=== PATIENT | female | born 1935 | race Caucasian/White ===

== ENCOUNTER 2016-11-09 11:01 | Day surgery (SDC) | payer MEDICARE, BC ==
[2016-11-09] VITALS (24 sets, daily range): BP systolic 133–162; BP diastolic 54–72; PULSE 89–113; RESP 13–24; TEMP 96–98.4; O2SAT 92–99; Ht 144.8 cm; Wt 68.4 kg
[~2016-11-09] VITALS: Ht 144.8 cm; Wt 68.4 kg
[~2016-11-09 11:01] MED LIST: AMLO5TAB2 PO; HEPARIN SUB-Q 5,000 unit/0.5ml vial SQ ONE; LIDOCAINE 1% (10mg/ml) 2ml SDV INJ ONE; LR 1,000 ML IV PRN; NORMAL SALINE 1,000 ML IV PRN; PHENAZOPYRIDINE 95 MG TABLET PO ONE
[2016-11-09] MEDS ORDERED: BUPIVACAINE 0.25%/EPI 1:200,000 30ml SDV ONE ×2 (11:08→13:45)
[2016-11-09] MEDS ORDERED: SALINE FLUSH 10ml SYRINGE ONE ×2 (11:08→13:46)
[2016-11-09] MEDS ORDERED: LIDOCAINE JELLY 2% 20ml UROJET MM ONE (11:09)
--- NOTE | 2016-11-09 12:03 | ANESPREOP ---
Anesthesia Record Date and Time DATE: 11/09/16 TIME: 11:55 Proposed Surgical Procedure VAGINAL HYST. WITH REMOVAL OF TUBES, MID URETHERAL LING CYSTO, STENT NPO since: mn Allergies: Coded Allergies: No Known Allergies (Unverified , 11/08/16) Ht/Wt/BMI Height: ' " Weight: kg BMI: kg/m2 Medications Inpatient Medications Current Medications Medications (Trade) Dose Ordered Sig/Marquez Start Time Stop Time Status Last Admin Dose Admin Lactated Ringer's 1,000 ml @ 50 mls/hr Q20H PRN 11/09/16 07:00 11/09/16 07:00 DC Sodium Chloride 1,000 ml @ 50 mls/hr Q20H PRN 11/08/16 16:54 11/08/16 16:58 DC Sodium Chloride (Normal Saline IV) 1,000 ml @ 50 mls/hr Q20H PRN 11/09/16 07:00 Amlodipine Besylate (Amlodipine Besylate) 5 Mg Tablet, 5 MG PO DAILY, (Reported) Currently on Beta Raman: No Medical/Surgical History Anesthesia PMH: Reports: *Hypertension, CVA/Stroke/TIA (TIA- POSSIBLY YEARS AGO ), Renal Disease Smoking Status: Never smoker Use Chewing Tobacco?: No Second Hand Exposure: No Substance Use Type: does not use Alcohol Intake: none HX of Last Menstrual Period: AGE 56 Past Surgical History Orthopedic Surgeries: Yes - ANKLE-LEFT Abdominal Surgeries: Genitourinary Surgeries: Yes - BLADDER TIE UP Cardiac Surgeries: Endocrine Surgeries: Reproductive Surgeries: Yes - LUMPECTOMY Neurological Surgeries: Ear Surgeries: Nose Surgeries: Throat Surgeries: Other Surgeries: Anesthesia Adverse Reactions: FOUND none Family Hx of Anesthesia Advers: none Hx of Motion Sickness: No Physical Exam Respiratory: Bilat breath sounds equal, Lungs clear Cardiovascular: FOUND Regular rate, rhythm, FOUND No murmur Airway Assessment Mallampati Score: II TMD: 2 Fingerbreadths Neck Extension: Fair Teeth: Partial Upper Dentures Overall Assessment: May Be Diff Intubation (small mouth opening, ) ASA: 3 Plan Anesthesia Plan: GETA Discussion Discussed risks/options/alternatives of anesthesia and questions answered. Patient consents. Nursing pain assessment noted. Present: Family Member Attestation Statement Prior to the delivery of any anesthetic medication, I examined the patient, developed the plan, obtained the patient's consent and discussed the risk and benefits of the procedure with the patient/guardian. STEWART PEDRAZA AGENT Nov 09, 2016 11:59
[2016-11-09 12:07] LABS: BASOPHILS % (AUTO) 0.5 % (0-2); EOSINOPHILS # (AUTO) 0.3 T/MM3 (0-0.5); EOSINOPHILS % (AUTO) 3.6 % (0-4); HCT - HEMATOCRIT 35.7 % (36-46); HGB - HEMOGLOBIN 11.5 GM/DL (12-16); IMMATURE GRANULOCYTE # (AUTO) 0.01 T/MM3 (0.00-0.03); IMMATURE GRANULOCYTE % (AUTO) 0.1 % (0.0-0.5); LYMPHOCYTES % (AUTO) 27.2 % (23-45); MEAN CORPUSCULAR HGB 27.2 UUG (26-34); MEAN CORPUSCULAR HGB CONC(MCHC 32.2 GM/DL (31-37); MEAN CORPUSCULAR VOLUME 84.4 UM3 (80-100); MEAN PLATELET VOLUME 9.4 UM3 (9.4-12.4); MONOCYTES # (AUTO) 0.3 T/MM3 (0-0.8); MONOCYTES % (AUTO) 4.7 % (0-9.0); NEUTROPHILS #(AUTO)-ABSOLUTE 4.7 T/MM3 (1.8-7.7); NEUTROPHILS % (AUTO) 63.9 % (33-66); RED BLOOD COUNT 4.23 M/MM3 (4.00-5.20); WBC - WHITE BLOOD COUNT 7.3 T/MM3 (4.5-11.0)
[2016-11-09] MEDS ORDERED: FENTANYL 250mcg/5ml INJECTION ONE (12:11)
[2016-11-09] MEDS ORDERED: PROPOFOL 200mg 20 ML IV ONE (12:12)
[2016-11-09] MEDS ORDERED: ROCURONIUM 50mg/5ml INJECTION IV ONE (12:12)
[2016-11-09 12:16] LABS: ALBUMIN 3.9 G/DL (3.5-5.0); ALBUMIN/GLOBULIN RATIO 1.1 RATIO (1.1-2.2); ALKALINE PHOSPHATASE 95 U/L (38-126); ALT (SGPT) 23 U/L (9-52); ANION GAP 11 MEQ/L (5-15); AST (SGOT) 26 U/L (14-36); BUN/CREATININE RATIO 10 RATIO (6-26); CALCIUM 9.7 MG/DL (8.4-10.2); CHLORIDE 110 MEQ/L (98-107); CO2 - CARBON DIOXIDE 26 MEQ/L (22-30); CREATININE 0.9 MG/DL (0.7-1.2); GLOMERULAR FILTRATION RATE 60; GLUCOSE 118 MG/DL (65-110); POTASSIUM 3.4 MEQ/L (3.6-5); SODIUM 147 MEQ/L (134-144); TOTAL PROTEIN 7.6 G/DL (6.3-8.2)
[2016-11-09] MEDS ORDERED: LACRI-LUBE EYE OINT 3.5 G TUBE ONE (12:53)
[2016-11-09] MEDS ORDERED: CEFAZOLIN 1 GRAM INJECTION ONE (13:02)
[2016-11-09] MEDS ORDERED: CEFAZOLIN 1 G in NORMAL SALINE 100 ML IV ONE (13:05)
[2016-11-09] MEDS ORDERED: DEXAMETHASONE 4mg/ml - 1ml INJECTION ONE (13:19)
[2016-11-09] MEDS ORDERED: ONDANSETRON 4mg/2ml INJECTION ONE (13:19)
[2016-11-09] MEDS ORDERED: HYDROMORPHONE 2mg/ml INJECTION ONE (13:50)
[2016-11-09] MEDS ORDERED: DESFLURANE 240 ML LIQUID IH ONE (13:55)
[2016-11-09] MEDS ORDERED: IOHEXOL 300 MG/ML 50ml INJECTION ONE (14:39)
[2016-11-09] MEDS ORDERED: ONDANSETRON 4mg/2ml INJECTION IV PRN ×2 (15:15→16:45)
[2016-11-09] MEDS ORDERED: HYDROMORPHONE 2mg/ml INJECTION IV PRN (15:15)
[2016-11-09] MEDS ORDERED: FUROSEMIDE 40 MG/4 ML INJECTION ONE (15:36)
--- NOTE | 2016-11-09 16:42 | GYNOPNOTE1 ---
COMPOSITION BOARD PRESS OPERATOR Postoperative Note Date of Operation: 11/09/16 Preoperative Dx Comments MASSIVE CHRONICALLY NEGLECTED UTEROVAGINAL PROCIDENTIA; URETHRAL HYPERMOBILITY, GEM Postoperative Dx Comments SAME; SUSPECTED URETERAL OBSTRUCTION LEFT VHYST BSO ; TOTAL VAGINECTOMY; POSTERIOR COLPOPERINEORRHAPHY; MID URETHRAL SLING ; CYSTO W/ BILAT URETERAL CATH AND LEFT INDWELLING STENT Surgeon: Rufina Cornell Anesthesia Provider: Benjamin Hamlin CRNA Comments 350 ML Findings SEVERE ULCERATIONS, EDEMA, PROLAPSE, LOW URINE OUTPUT ENTIRE CASE. RUFINA CORNELL MD Nov 09, 2016 16:40
--- NOTE | 2016-11-09 16:48 | DI ---
Indication: ITS.REASON: POST OP STENT PROCEDURE: KUB: Encounter: Initial Comparison: None Findings: Endotracheal tube is seen in the mid thoracic trachea projecting 2 cm above the mario. There is airspace opacity in the left lower lobe. There is overlying catheter tubing projecting over the central abdomen. There is a left-sided double-J stent which appears low lying. The distal aspect is positioned farther towards the right than would be anticipated while the proximal locking loop appears lower than normal projecting at the L4 level. Bowel gas pattern is nonobstructive and nonspecific. Impression: The left-sided double-J stent appears to be distally migrated and low lying. .
--- NOTE | 2016-11-09 17:14 | ANESPO ---
Post-Op Note Date 11/09/16 Time: 17:14 Status Pt Participated in Evaluation: Pt participated in person Vital Signs Date Time Temp Pulse Resp B/P Pulse Ox O2 Delivery O2 Flow Rate FiO2 11/09/16 17:10 97.8 99 20 148/64 95 Room Air 11/09/16 16:37 5.00 Respiratory Function: Airway patent, Regular respirations Cardiovascular Function: Regular pulse Mental Status: Alert/oriented Pain Level Intensity: 0 Hydration: IV infusing Complications during Recovery None apparent Follow-Up Instructions Instructions Per Surgeon STEWART PEDRAZA CRNA Nov 09, 2016 17:14
--- NOTE | 2016-11-09 17:20 | NUR ---
ARRIVAL PT TO ROOM 121 PER CART. PT TRANSFERRED USING SLIDE BOARD WITH ASSIST OF 3. PT STATES PAIN IS 4/10 BUT DENIES NEED FOR PAIN MEDICATION. EGG SIZE BLEEDING TO THE PAD. PT DENIES NAUSEA OR SOA. PT ORIENTED TO SURROUNDINGS AND BED. BED ALARM ON. CALL LIGHT WITHIN REACH. WILL CONTINUE TO MONITOR.
[2016-11-09] MEDS: LR 1,000 ML IV SCH (17:34)
[2016-11-09] MEDS ORDERED: FLUORESCEIN IV ONE (18:16)
[2016-11-09] MEDS: METOCLOPRAMIDE 10mg/2ml INJECTION IV PRN (18:28)
--- NOTE | 2016-11-09 18:28 | NUR ---
NAUSEA PT DRY HEAVING. ALCOHOL SWAB PUT UP TO PT'S NOSE. BLUE BAG GIVEN TO PT. REGLAN ADMINISTERED. PT RESTING IN BED, WILL CONTINUE TO MONITOR.
[2016-11-09] MEDS: MORPHINE SULFATE 4 MG SYRINGE IV PRN (22:08)
[2016-11-09] MEDS: ARTIFICIAL TEARS 15 ML BOTTLE BOTH EYES PRN ×2 (22:22→23:22)
[2016-11-10] MEDS: LR 1,000 ML IV SCH ×3 (00:42→16:52)
[2016-11-10] MEDS: CEFAZOLIN 1 G in NORMAL SALINE 100 ML IV SCH ×3 (02:02→17:58)
[2016-11-10 02:18] VITALS: PULSE 92; RESP 18
[2016-11-10 03:42] VITALS: BP 128/62; PULSE 92; RESP 18; TEMP 98.1; O2SAT 93
[2016-11-10] MEDS: MORPHINE SULFATE 4 MG SYRINGE IV PRN (05:19)
--- NOTE | 2016-11-10 05:19 | NUR ---
Pain Pt rating pain a 5/10. Pt stated "the pain is in my tailbone area, I have had this tailbone pain in the past as well and I think its just because I've been not moving as much in the bed." This RN discussed PO pain medication options with the Pt. Pt stated she was "iffy about taking PO pain medications." Pt stated she wanted to do the IV pain medication at this time. 3mg IV morphine was given. Encouragement of PO intake was discussed with the Pt so she could take PO pain medications for pain management.
--- NOTE | 2016-11-10 06:35 | NUR ---
Summary Pts VS have been stable on RA. Family present at bedside. Pt denies nausea, Pt rated pain a 5/10 PRN Morphine was given. Zayas still in place, with adequate output.
[2016-11-10 06:50] LABS: ANION GAP 8 MEQ/L (5-15); BUN/CREATININE RATIO 10 RATIO (6-26); CHLORIDE 104 MEQ/L (98-107); CO2 - CARBON DIOXIDE 28 MEQ/L (22-30); CREATININE 0.8 MG/DL (0.7-1.2); GLOMERULAR FILTRATION RATE 69; GLUCOSE 131 MG/DL (65-110); POTASSIUM 3.6 MEQ/L (3.6-5); SODIUM 140 MEQ/L (134-144)
[2016-11-10 07:01] LABS: HCT - HEMATOCRIT 29.3 % (36-46); HGB - HEMOGLOBIN 9.6 GM/DL (12-16); MEAN CORPUSCULAR HGB 27.8 UUG (26-34); MEAN CORPUSCULAR HGB CONC(MCHC 32.8 GM/DL (31-37); MEAN CORPUSCULAR VOLUME 84.9 UM3 (80-100); MEAN PLATELET VOLUME 10.4 UM3 (9.4-12.4); RED BLOOD COUNT 3.45 M/MM3 (4.00-5.20); WBC - WHITE BLOOD COUNT 11.3 T/MM3 (4.5-11.0)
[2016-11-10 07:57] LABS: MONOCYTES # (MANUAL) 0.3 T/MM3 (0-0.8); NEUTROPHILS #(MANUAL)-ABSOLUTE 9.9 T/MM3 (1.8-7.7); TOTAL CELLS COUNTED 100 %
[2016-11-10 07:58] LABS: TOXIC GRANULATION 2+
[2016-11-10 08:08] VITALS: BP 154/64; PULSE 86; RESP 18; TEMP 96.8; O2SAT 91
--- NOTE | 2016-11-10 08:15 | NUR ---
PAIN/DISCHARGE THIS RN SPOKE WITH PATIENT ABOUT POSSIBLY MEETING SURGICAL OUTPATIENT CRITERIA THIS MORNING. THE ONLY CRITERIA MISSING ARE THE PATIENT NEEDS TO TAKE PO PAIN MEDICATIONS AND AMBULATE IN THE HALLS. PATIENT TELLS THIS RN QUOTE, "I CANNOT GO HOME TODAY OR TOMORROW. I WAS TOLD I WOULD BE HERE UNTIL SATURDAY". THIS RN EXPLAINED THAT THE PATIENT IS A SURGICAL OUTPATIENT NOT AN INPATIENT AND IF SHE MEETS CRITERIA SHE WOULD HAVE TO PAY OUT OF POCKET. PATIENT STATES PAIN IS A 5/10 AT THIS TIME. THIS RN OFFERED PO NORCO. PATIENT REFUSES NORCO AND STATES THAT IF SHE DOESN'T TAKE PO MEDS THEN SHE WON'T BE ABLE TO GO HOME. THIS RN ENCOURAGED PATIENT TO ONLY TAKE PO MEDS IF POSSIBLE INSTEAD OF IV MEDICATIONS. THIS RN EXPLAINED BENEFITS OF PO PAIN MEDICATION VS. IV. PT STILL DOES NOT WANT TO TAKE PO MEDS. WILL CONTINUE TO MONITOR.
[2016-11-10] MEDS: ENOXAPARIN 40 MG/0.4 ML INJECTION SQ SCH (09:57)
[2016-11-10] MEDS: METOCLOPRAMIDE 10mg/2ml INJECTION IV PRN ×2 (09:57→20:14)
--- NOTE | 2016-11-10 11:59 | NUR ---
JACQUES HANNA VISITED WITH PT AND DAUGHTERS. CM EXPLAINED ROLE AND PROVIDED CONTACT INFORMATION. PT PLANS TO RETURN HOME POST HOSPITAL STAY. PT STATES THAT SHE WAS PLANNING TO BE AT [facility] UNTIL SATURDAY BUT DR IS D/C SATURDAY. CM EXPLAINED TO PT/FAMILY THAT IF PT WANTS TO STAY PAST THE TIME WHEN D/C HER FROM [facility] THEN THERE IS A CHARGE OF APPROXIMATELY 2000 PER DAY. PT STATES THAT THEY COULD NOT AFFORD THAT. PT DECLINES HOME HEALTH OPTIONS. CM THEN STARTED TO EXPLAIN ABOUT FACILITY OPTIONS AND PT DECLINED THAT INFORMATION. PT IS AWARE TO CONTACT CM IF NEEDS [facility].
[2016-11-10] MEDS: HYDROCODONE/APAP 5 mg/325 mg TABLET PO PRN ×3 (12:47→21:38)
[2016-11-10 12:55] VITALS: BP 152/61; PULSE 88; RESP 16; TEMP 97; O2SAT 92
--- NOTE | 2016-11-10 13:46 | PNF ---
DATE: 11/10/2016 SUBJECTIVE This is a patient of Dr. Cornell who underwent major vaginal surgery and reconstruction last evening. She had a vaginal hysterectomy, bilateral salpingo-oophorectomy, a total vaginectomy , a posterior colporrhaphy and mid-urethral sling and cystoscopy with a left stent. EBL was 350 mL. This morning she is having a lot of pain and a lot of cramping. She has not passed any flatus yet and her abdomen is distended. She has not really eaten or drunk anything significant, either. Her blood count this morning shows her hemoglobin dropped from 11.5 to 9.6. She is still on antibiotics. Her BMP was essentially normal. On examination her abdomen is soft but distended. There are bowel sounds but she is flatus-negative. Overall she is doing okay but certainly not ready for dismissal yet. There is some question this morning about whether she is an inpatient or an outpatient and I think this surgery was originally scheduled as an outpatient but the surgery was much more extensive than originally planned and so I am admitting her as an inpatient today. There is no way that she can go home today. She has recently broken her left arm. She is not ambulating yet. She is not flatus-positive yet. She is not eating yet. She is certainly not ready to go home today. Will reevaluate on a day-to-day basis but today there was never an issue about going home from the surgeon's standpoint. She has positive bowel sounds so that is good and she is afebrile and her vital signs are stable. Her blood pressure has jumped around a little bit. We are going to get a bedside commode and try to get her up and see if she can pass some gas. We will slowly increase her ambulation. Diet is regular. I offered her a heating pad for her abdomen and she doesn't think she needs that yet. Will continue with postop care and continue to reevaluate. Questions were answered to her and her daughter's satisfaction. ROBERT
--- NOTE | 2016-11-10 16:24 | OPNOTEF ---
DATE OF SURGERY 11/09/2016 PREOPERATIVE DIAGNOSIS Massive neglected uterovaginal procidentia. POSTOPERATIVE DIAGNOSES 1. Massive neglected uterovaginal procidentia. 2. Urethral hypermobility with stress incontinence. 3. Suspected ureteral obstruction. PROCEDURES PERFORMED 1. Vaginal hysterectomy with bilateral salpingo-oophorectomy. 2. Total vaginectomy. 3. Posterior colpoperineorrhaphy. 4. Mid urethral sling with cystourethroscopy. 5. Cystoscopy with bilateral ureteral catheterization and placement of left ureteral indwelling stent. OPERATING TIME 3 hours 15 minutes. SURGEON Brain Cornell MD ESTIMATED BLOOD LOSS 350 mL. ANESTHESIA General. DRAINS 1. Transurethral Zayas catheter. 2. Left ureteral double pigtail stent. IMPLANTS [place] [employer] Advantage Fit Sling System. INDICATIONS/FINDINGS This is a 81-year-old woman with massive eversion of the cervix and vagina with a very large amount of edema and hypertrophy of the cervix with deep ulcerations, particularly in the left side of the vagina. She has a very widened genital hiatus. She had extremely poor-quality tissue noted throughout the entire dissection. She had urethral hypermobility and documented stress incontinence with a normal postvoid residual volume preoperatively. Intraoperatively, the uterine corpus was enlarged for her age. The fallopian tubes and ovaries were unremarkable. There was a very deep left posterolateral vaginal sulcus erosion penetrating deep into the parametrial tissues. The tissues in general were very edematous. There was not initial urine output noted from each bilateral urine. Her preoperative creatinine was 0.9 and she had no clear evidence of obstruction preoperatively. Due to the distortion of the anatomy we elected to place bilateral ureteral catheters for this case which did assist in the dissection due to the anatomic distortions. Because of decreased urine output at the end of the case after very large fluid challenge with IV Lasix and IV fluorescein, I did place a left ureteral stent due to the delay in urine output although there was good urine output at that point. DESCRIPTION OF PROCEDURE General anesthesia was administered and she was prepped and draped in the high lithotomy position with sequential compression devices and prophylactic antibiotics. The field was exposed with Allis clamps, various retractors and eventually the Donell self-retaining retractor. Cystoscopy was completed first using a 30-degree telescope, 21-Fr sheath and water as the distension medium. The bladder wall was undulated but otherwise unremarkable. I was able to place a 6-Fr blunt end ureteral catheter over a 0.038-inch glidewire on each side without difficulty up to 20+ cm. The catheters were secured to a Zayas catheter and placed to drainage off the field. There was [id number] production of urine during the case. The hysterectomy was begun by pulling the cervix down on traction and the cervical diameter itself was approximately 7 cm circumferentially. The incision line along the cervicovaginal margin was marked and the incision line infiltrated with diluted Marcaine/epinephrine solution. The Bovie was used to then cut through the vaginal epithelium and then on through the fibromuscularis to then allow entry into the posterior cul-de-sac. Anteriorly, the bladder was then dissected off sharply with Leong scissors and this was mobilized but not initially entered easily. There was such a great lateral detorsion for clamp placement I elected to then do a Doderlein hysterectomy through the posterior colpotomy incision, thus pulling the fundus out through the posterior colpotomy and then making serial purchases with Rafael clamps to purchase initially the fallopian tube, uteroovarian pedicle and round ligament to then divide these sharply and suture ligate with Rafael 0-Vicryl sutures. We then continued on down through the broad ligament, cardinal ligament and uterine vasculature and then finally I was able to enter the anterior peritoneum to be free of the bladder and then the remaining pedicles of the thickened, edematous cardinal ligament and uretero-sacral pedicles across the vagina were taken with serial Rafael or Zeppelin clamps, bisection and Rafael ligations of 0-Vicryl suture. This allowed removal of the large elongated cervix and enlarged corpus. The field was cleared. We then removed the fallopian tubes and ovaries which were pulled down and serially clamped across the mesosalpinx and then across the infundibulopelvic ligament to purchase the ovarian vasculature. A safety free tie of 0-Vicryl was then placed, the clamp flashed and then the specimen excised and a second free tie of 0-Vicryl was then placed. This was done in the same fashion on each side. All pedicles were reviewed and found to be dry. Pelvic floor was otherwise unremarkable except for the notable edema. At this point the vaginal cuff was closed with interrupted [id number] 2-0 Vicryl sutures. The vaginectomy was then performed to work the posterior side first to strip the epithelium off, beginning over the perineal body, then laterally along the sulcus on each side of the vagina and then up to the suture closure line at the apex. Once this was stripped off we mobilized the vaginal and perineal skin away from the underlying perineal musculature and deeper levator ani musculature. The anterior side was then worked in a similar manner to take off the bulk of the vaginal wall from the cuff closure line to the level of the bladder neck, then laterally to each sulcus. A very thin strip was left on each side to then allow placement of drainage tunnels with a running 3-0 Vicryl suture in the fashion of LeFort drainage tunnels. These sutures were then used to finally close the vaginal epithelium after the anterior and posterior fibromuscularis were plicated with three rows of interrupted 2-0 Vicryl suture and then from side to side five sutures of interrupted 2-0 PDS, then plicated the levator ani musculature and the perineal musculature to give an additional layer of support over the initial closure line. This then allowed closure of the vaginal skin with a 3-0 Vicryl suture. Attention was then turned to cystourethroscopy where again the urine output was noted to be very low from both sides. She was given the fluid challenge of Lasix and IV fluorescein. After approximately 20 minutes finally urine output from the right side appeared. I removed the right ureteral catheter and there remained some urine output on that side. It was still delayed on the left side and I therefore replaced the wire easily through the catheter and then passed over this a 6-Fr double pigtail stent x 24 cm. This passed very easily and at the initiation of passing this stent we did finally see some urine production as well. I elected to keep the stent in. The bladder was then drained with an 18-Fr Zayas catheter in preparation for the sling. The [place] [employer] Retropubic Synthetic Mid-Urethral Sling system was utilized. She was placed in 15 degrees Trendelenburg and the suprapubic incision sites were marked and the retropubic space was hydrodissected with dilute Marcaine/epinephrine solution. The suburethral vaginal wall was incised 2 cm underneath the mid urethra after infiltrating with the Marcaine/epinephrine solution. A dissection tunnel was developed on each side of the mid urethra beneath the fibromuscular layer and through the periurethral endopelvic connective tissue anterolaterally toward the pubic bone. The tissues were mobilized from the urethra proximally so that the sling would lay flat been the mid portion of the urethra upon tensioning. The bladder was drained, the catheter guide deflected the urethra and bladder and the trocar was passed through the left dissection tunnel to the base of the pubic bone to confirm no buttonholing in the sulcus. This was directed along the midclavicular trajectory as it was passed beneath the bone through the pelvic floor musculature and then on through the space of Retzius while hugging the back of the bone. It was then passed on out through the abdominal wall incision. The same steps were used on the right side. Cystourethroscopy was then completed again with the 70-degree telescope, water as the distension medium. With the bladder well distended and manipulation of the sling arms there was no trocar perforation. The bladder was re-drained and the sling was tensioned beneath the mid urethra with a Leong scissor spacer as the plastic sleeves were deployed. The sling arms were trimmed and released beneath the skin suprapubically and those wounds were closed with Dermabond after irrigating the tunnels with saline. The suburethral vaginal wall was closed with a running 2-0 Vicryl suture. There was no bleeding. Good hemostasis. A transrectal examination was repeated and found to be negative. The Zayas catheter was maintained to continuous drainage. A flat plate x-ray of the abdomen was made. The upper portion of the stent appeared to be somewhat low. The patient was awakened and taken to the PACU in good condition. ROBERT
--- NOTE | 2016-11-10 19:44 | NUR ---
END OF SHIFT REPORT PATIENT A/OX3. ROOM AIR. VITAL SIGNS STABLE. AFEBRILE. PATIENT NEEDS EDUCATION FREQUENTLY ON DIET, PAIN MEDICATIONS, ETC. THROUGHOUT THE SHIFT, THIS RN HAS OFFERED THE PATIENT PO NORCO ON MULTIPLE OCCASIONS. PATIENT WAS REFUSING PAIN PILLS BECAUSE SHE DIDN'T WANT TO TAKE PILLS. PAIN RATING 5/10. THIS RN EXPLAINED THAT PATIENT SHOULD TAKE PO MEDS FOR PAIN CONTROL BECAUSE THE EFFECTS OF THE MEDS WOULD LAST LONGER THAN IV PAIN MEDS. PATIENT HAS REFUSED IV PAIN MEDICATIONS. ONCE DURING THE SHIFT, PATIENT DID TAKE A PO NORCO. PATIENT HAS DEALT WITH NAUSEA DURING THE SHIFT. PATIENT REFUSES TO EAT EXCEPT SMALL BITES OF PUDDING/SHERBERT. THIS RN EXPLAINED THAT EATING MIGHT HELP WITH NAUSEA AND ONCE SHE WERE TO EAT THEN PO MEDS COULD BE GIVEN. UP WITH ASSIST X1 WITH GB. INCISIONS CLEAN, DRY, INTACT. WILL CONTINUE TO MONITOR.
[2016-11-10 20:00] VITALS: BP 164/69; PULSE 104; RESP 16; TEMP 98.8; O2SAT 95
[2016-11-11] MEDS: CEFAZOLIN 1 G in NORMAL SALINE 100 ML IV SCH ×3 (02:25→17:38)
--- NOTE | 2016-11-11 06:15 | NUR ---
AMBULATION PT AMBULATED IN ROOM TO THE DOOR AND BACK. PT TOLERATED WELL. DID DRY HEAVE ONCE WHEN GETTING BACK TO BED. PT BACK IN THE CHAIR AT THIS TIME. WILL CONTINUE TO MONITOR.
[2016-11-11 08:06] VITALS: PULSE 93; RESP 16
[2016-11-11 08:09] VITALS: BP 151/72; PULSE 93; RESP 16; TEMP 96.8; O2SAT 92
--- NOTE | 2016-11-11 08:50 | NUR ---
SHIFT STATUS/SUMMARY Report received in SBAR. All cares assumed. Introduced self to pt et pt family at BS. Assessment complete. See flowsheet. Pt is pleasant, A&Ox3, MAETC, PERRL. BLungs are CTA, RA sats <>92%, abd distended, firm, et tender. Pt states that her abd is always like that but just a little larger.Pt has 2 small incisions suprapubic area with dermabond JD EDWARDS. Scant mostly sero sang drainage from vaginal site. She denies flatus up to this point. Informed pt that she will need to get up and move around to help get her gut moving. She verbalized understanding. Pt is compliant with cares. Pt c/o pain at start of shift to her rectum. Attempted to give pt [place] tablet after Reglan 10mg given IV, pt immediately vomited pill back up. Pt rested for a period then requested [place] again. Given to pt by golf ball cover treater. Pt slept well through the night. Awakened briefly a time or two with no complaints. Approximately 0520 pt awakened and asked to sit in chair. Pt was assisted UR to chair. Pt recently fractured L Shoulder. Pt was able to get up and ambulate x 2 [address] et return to chair. Pt bath completed et returned to bed. No complaints at this time. Report given in SBAR to oncoming RN. All cares resigned.
[2016-11-11] MEDS: ENOXAPARIN 40 MG/0.4 ML INJECTION SQ SCH (08:58)
[2016-11-11] MEDS: NS 500 ML IV PRN (08:59)
[2016-11-11] MEDS: METOCLOPRAMIDE 10mg/2ml INJECTION IV PRN (09:09)
--- NOTE | 2016-11-11 11:33 | GSPOSTPN ---
Postoperative Progress Note 11/11/16 af, vss x bp slightly elevated pt has been up and moving some, but still no flatus abd still distended some (but always is to some extent per pt) but pos bowel sounds and "pt feels it gurgling" wallis still in place encouraged ambulation can not progress until flatus pos q&a-krASHELY Tamayo MD Nov 11, 2016 11:32
[2016-11-11] MEDS ORDERED: MILK OF MAGNESIA 30 ML SUSP PO PRN (11:45)
[2016-11-11 12:48] VITALS: BP 144/68; PULSE 109; RESP 16; TEMP 97.3; O2SAT 92
[2016-11-11 15:56] VITALS: BP 157/71; PULSE 103; RESP 18; TEMP 97.9; O2SAT 93
--- NOTE | 2016-11-11 17:58 | NUR ---
SUMMARY PT ALERT AND ORIENTED X3 THIS SHIFT. VITAL SIGNS STABLE ON ROOM AIR. PT DENIES SOA, CP. NO BM HAS OCCURRED THIS SHIFT AND PT CONTINUES TO DENY THE PRESENCE OF FLATUS. PT HAS ONLY TAKEN IN CLEAR LIQUIDS. PT HAS REPORTED TWO EPISODES OF NAUSEA WHEN ATTEMPTING TO TAKE IN FOOD (TOAST/MASHED POTATOES). REGLAN IV ADMINISTERED X1 THIS AM FOR NAUSEA. NO VOMITING NOTED OR REPORTED BY PT THIS SHIFT. PT'S FAMILY PRESENT IN ROOM THIS SHIFT. PT AMBULATED HALLS 3 TIMES THIS SHIFT WITH STAFF ASSIST AND GAIT BELT. PT AMBULATED FARTHER IN THE COX EACH TIME. PT ALSO REPOSITIONED IN THE CHAIR TWICE. THIS RN REINFORCED THE IMPORTANCE OF AMBULATION. PT VERBALIZED UNDERSTANDING. PT IN BED AT THIS TIME, SIDE RAILS UP X2, BED ALARM ON AND CALL LIGHT IN REACH. WILL CONTINUE TO MONITOR CLOSELY.
--- NOTE | 2016-11-11 18:54 | GSPOSTPN ---
Postoperative Progress Note 11/11/16 still no flatus Bowel sounds present Have tried MoM Will order ducolax supp to try if desired. q&a-ASHELY Mosqueda MD Nov 11, 2016 18:54
[2016-11-11] MEDS ORDERED: BISACODYL 10 MG SUPPOSITORY RECTALLY ONE (19:00)
[2016-11-11 19:42] VITALS: BP 155/73; PULSE 110; RESP 14; TEMP 98.2; O2SAT 93
--- NOTE | 2016-11-11 22:00 | NUR ---
SUPPOSITORY PT HAS DENIED WANTING HER SUPPOSITORY, STATES SHE WOULD LIKE TO GET SOME SLEEP TONIGHT AND WOULD WANT HER SUPPOSITORY AROUND 0500. PT HAS ACTIVE BOWEL SOUNDS ON THE UPPER AND LOWER LEFT QUADRANT, RIGHT SIDE IS SOLID, ROUND AND HYPOACTIVE. WILL CONTINUE TO MONITOR.
[2016-11-11 22:14] VITALS: PULSE 110; RESP 16
[2016-11-12 01:13] VITALS: BP 162/75; PULSE 112; RESP 14; TEMP 97.6; O2SAT 94
[2016-11-12] MEDS: NS 500 ML IV PRN (01:18)
[2016-11-12] MEDS: CEFAZOLIN 1 G in NORMAL SALINE 100 ML IV SCH ×3 (01:19→17:00)
[2016-11-12 03:34] VITALS: BP 158/110; PULSE 108; RESP 16; TEMP 97.8; O2SAT 91
--- NOTE | 2016-11-12 04:10 | NUR ---
GAS PT AMBULATED TO THE BATHROOM AND BACK TO BED, SNEEZED AND PASSED A LARGE AMOUNT OF GAS AT THIS TIME. WILL CONTINUE TO MONITOR.
--- NOTE | 2016-11-12 05:24 | NUR ---
SHIFT SUMMARY PT ALERT AND ORIENTED X3, VITAL SIGNS STABLE ON ROOM AIR. DENIES C/P,N/V AND SOA. PT HAS AMBULATED TWICE ON THIS SHIFT, WALKING A LITTLE FARTHER EACH TIME. DAUGHTERS IN ROOM THROUGHOUT THE NIGHT. DENIES PAIN AND NEED FOR PRN PAIN MEDICATION. PT HAS SLEPT THROUGH THE NIGHT. WILL CONTINUE TO MONITOR.
[2016-11-12 07:42] VITALS: BP 155/71; PULSE 102; RESP 12; TEMP 96.9; O2SAT 92
--- NOTE | 2016-11-12 08:16 | PNPDOC ---
Progress Note Date 11/12/16 POD #3 Pt reports + flatus, still not tolerating po AVSS Abd-mod distention, tender RLQ, no rebound/guarding A/P: Cont to increase diet and activity Consider dismissal this pm if taking po adequately. BRUCE RUTH MD Nov 12, 2016 08:16
[2016-11-12] MEDS: ENOXAPARIN 40 MG/0.4 ML INJECTION SQ SCH (09:31)
[2016-11-12 09:35] VITALS: PULSE 102; RESP 12
--- NOTE | 2016-11-12 12:07 | NUR ---
CM SPOKE WITH PT, INTRODUCED SELF, EXPLAINED ROLE, PROVIDED CONTACT INFO. REVIEWED DC PLAN OF HOME. SHE DENIED HAVING ANY DC QUESTIONS/NEEDS. ENCOURAGED HER TO CALL IF NEEDS [facility], AND SHE SAID OK.
[2016-11-12 12:33] VITALS: BP 141/69; PULSE 98; RESP 16; TEMP 96.9; O2SAT 92
[2016-11-12] MEDS ORDERED: HYDR-4246 PO (12:35)
[2016-11-12 16:07] VITALS: BP 150/69; PULSE 102; RESP 16; TEMP 97.4; O2SAT 92
--- NOTE | 2016-11-12 16:15 | NUR ---
CM SPOKE WITH PT, AND DAUGHTERS PRESENT WITH PT'S PERMISSION. REVIEWED PETERS; PT REFUSED TO SIGN, SAYING SHE WAS TOLD SHE WOULD BE INPT. THIS WORKER ATTEMPTED TO EXPLAIN THAT PT IS STILL IN OUTPT STATUS, BUT SHE WOULD NOT ACKNOWLEDGE. SHE SAID SHE HOPES SHE WILL DC TODAY. Addendum: 11/12/16 at 1628 by MADISON RAZO ADDITION: PT STATED SHE WAS TOLD SHE WAS IN OUT PATIENT STATUS WHEN SHE ARRIVED AT THE HOSPITAL, BUT SHE SAID SHE CANNOT AFFORD THE COST. THIS WORKER AGAIN EXPLAINED HER STATUS REMAINS OUTPATIENT, BUT SHE DID NOT WANT TO SIGN THE PETERS. THIS WORKER EXPLAINED THAT THIS WORKER WILL INDICATE ON THE PETERS THAT PT DOES NOT WANT TO SIGN, AND PT WAS AGREEABLE TO THIS.
--- NOTE | 2016-11-12 16:57 | NUR ---
CATHETER INSTRUCTIONS PT'S DAUGHTER INSTRUCTED ON CATHETER CARE AND HOW TO EMPTY CATHETER AT THIS TIME. THIS RN DEMONSTRATED EMPTYING CATHETER AND ALSO INSTRUCTED PT AND/OR FAMILY TO CLEANSE PERINEUM AREA AT LEAST TWICE DAILY TO PREVENT INFECTION. DAUGHTER VERBALIZED UNDERSTANDING OF THESE INSTRUCTIONS AND HAD NO FURTHER QUESTIONS. WILL CONTINUE TO MONITOR AND PLAN TO DISCHARGE PT THIS EVENING.
--- NOTE | 2016-11-12 18:00 | NUR ---
DISCHARGE PT DISCHARGED TO HOME AT THIS TIME IN THE COMPANY OF HER DAUGHTER. PT TRANSPORTED TO THE ER ENTRANCE BY WHEELCHAIR AND WITH THE SUPERVISION OF STAFF. DISCHARGE INSTRUCTIONS INCLUDING DIET, ACTIVITY, MEDICATIONS, FOLLOW UP APPOINTMENT, REPORTABLE S/S, AND [facility] YUN HYSTERECTOMY DISCHARGE INSTRUCTIONS GIVEN AND REVIEWED WITH PATIENT AND FAMILY. PT VERBALIZED UNDERSTANDING OF THESE INSTRUCTIONS AND HAD NO FURTHER QUESTIONS. IVL DISCONTINUED. ARMBAND REMOVED. PERSONAL BELONGINGS RETURNED. PT DISCHARGED WITH [facility] CATHETER TO DEPENDENT DRAINAGE PER DR. YUN ORDER.
--- NOTE | 2016-11-13 14:28 | NUR ---
[place] IS 5 Addendum: 11/13/16 at 1428 by MADISON RAZO Amended: Links added.
== END 2016-11-12 18:00 | disposition home or self-care (01) ==
LOC: SCU 11:01 → SRG 11:03 → EDSTATUS 13:00 → SCU 11-12 18:00
PROVIDERS: ATTEND Obstetrics & Gynecology Gynecology
DX: N81.3 Complete uterovaginal prolapse (principal); N72 Inflammatory disease of cervix uteri; N80.0 Endometriosis of uterus; N83.292 Other ovarian cyst, left side; N83.291 Other ovarian cyst, right side; N36.41 Hypermobility of urethra; N39.3 Stress incontinence (female) (male); N83.8 Other noninflammatory disorders of ovary, fallopian tube and broad ligament; D17.5 Benign lipomatous neoplasm of intra-abdominal organs; I10 Essential (primary) hypertension; Z79.899 Other long term (current) drug therapy
CPT/HCPCS: 36415; 52332; 57288; 58275; 58291; 74000; 80048; 80053; 85025; 88307; A9270; C1771; C2617; J0690; J1100; J1644; J1650; J1940; J2405; J2704; J2765; J3010; J7030; J7050; J7120